=== PATIENT | female | born 1955 | race Caucasian/White ===

== ENCOUNTER → 2017-07-07 | Outpatient (CLI) | payer BC | END | disposition home or self-care (01) | LOC: CFH 13:16 | PROVIDERS: ATTEND Family Medicine | DX: N63 Unspecified lump in breast (principal) | CPT/HCPCS: 76641; G0204 ==

== ENCOUNTER → 2017-07-08 | Outpatient (CLI) | payer BC ==
[~2017-07-08] MED LIST: LIDOCAINE 1%-EPI 1:100K, 30ML ONE; SODIUM BICARBONATE 4.2%, 5ML ONE
== END | disposition home or self-care (01) ==
LOC: CFH 07:30
PROVIDERS: ATTEND Family Medicine
DX: R92.8 Other abnormal and inconclusive findings on diagnostic imaging of breast (principal)
CPT/HCPCS: 19083; 88305; G0206; J3490; 88360

== ENCOUNTER → 2017-08-06 | Outpatient (CLI) | payer BC ==
[~2017-08-06] MED LIST changes: +AMLO5TAB2 PO; -LIDOCAINE 1%-EPI 1:100K, 30ML ONE; +LORA1TAB PO; -SODIUM BICARBONATE 4.2%, 5ML ONE
== END | disposition home or self-care (01) ==
LOC: STAR 12:34
PROVIDERS: ATTEND Surgery
DX: Z01.818 Encounter for other preprocedural examination (principal); R94.31 Abnormal electrocardiogram [ECG] [EKG]; C50.211 Malignant neoplasm of upper-inner quadrant of right female breast
CPT/HCPCS: 93005

== ENCOUNTER 2017-08-13 11:38 | Day surgery (SDC) | payer BC ==
[~2017-08-13] VITALS: Ht 170.2 cm; Wt 53.0 kg
[2017-08-13] MEDS ORDERED: BUPIVACAINE/PF 0.25% ONE (11:43)
[2017-08-13 12:03] VITALS: BP 172/72
[2017-08-13] MEDS ORDERED: LACTATED RINGERS 1,000 ML IV SCH (12:03)
[2017-08-13] MEDS ORDERED: LIDOCAINE 1%, 2ML ONE (12:28)
[2017-08-13] MEDS ORDERED: PNEUMOCOCCAL 23 VACCINE IM-VACC ONE (12:30)
[2017-08-13] MEDS ORDERED: LIDOCAINE 1%, 2ML SQ PRN (13:00)
[2017-08-13] MEDS ORDERED: BUPIVACAINE/PF 0.5% ONE (13:12)
[2017-08-13] MEDS ORDERED: GENTAMICIN 80 MG/2 ML ONE (13:12)
[2017-08-13] MEDS ORDERED: EPINEPHRINE 1 MG/ML, 1ML ONE (13:13)
[2017-08-13] MEDS ORDERED: BACITRACIN 50,000 UNIT ONE (13:13)
[2017-08-13] MEDS ORDERED: FENTANYL PF 100 MCG/2ML ONE ×3 (13:36→15:36)
[2017-08-13] MEDS ORDERED: MIDAZOLAM 1 MG/ML, 2ML ONE (13:37)
[2017-08-13] MEDS ORDERED: CEFAZOLIN 1,000 MG ONE (13:43)
[2017-08-13] MEDS ORDERED: ONDANSETRON 2MG/ML, 2ML ONE (13:43)
[2017-08-13] MEDS ORDERED: DEXAMETHASONE 4 MG/ML, 5ML ONE (13:43)
[2017-08-13] MEDS ORDERED: ISOSULFAN BLUE 10 MG/ML, 5ML IV ONE (13:51)
[2017-08-13] MEDS ORDERED: LABETALOL 5MG/ML, 20ML ONE (14:05)
[2017-08-13] MEDS ORDERED: hydrALAzine 20 MG/ML, 1ML ONE (15:08)
[2017-08-13] MEDS ORDERED: HYDROmorphone 1 MG/ML, 1ML IV PRN (15:30)
[2017-08-13] MEDS ORDERED: PROMETHAZINE 25 MG/ML, 1ML IV PRN (15:30)
[2017-08-13] MEDS ORDERED: OXYcodone 5 MG/5 ML ORAL.SOL UDC PO PRN (15:30)
[2017-08-13] MEDS ORDERED: MEPERIDINE/PF 25MG/0.5ML IVPush PRN (15:30)
[2017-08-13] MEDS ORDERED: ONDANSETRON 2MG/ML, 2ML IVPush PRN (15:30)
[2017-08-13] MEDS ORDERED: LABETALOL 5MG/ML, 20ML IV PRN (15:30)
[2017-08-13] MEDS ORDERED: ACETAMINOPHEN 325 MG TABLET PO PRN (15:30)
[2017-08-13] MEDS ORDERED: FENTANYL PF 100 MCG/2ML IV PRN (15:30)
[2017-08-13] MEDS ORDERED: hydrALAzine 20 MG/ML, 1ML IV PRN (15:30)
== END 2017-08-13 18:15 | disposition home or self-care (01) ==
LOC: OUT 11:38 → EDSTATUS 14:00 → OUT 18:15
PROVIDERS: ATTEND Surgery
DX: C50.211 Malignant neoplasm of upper-inner quadrant of right female breast (principal); K73.9 Chronic hepatitis, unspecified; F32.9 Major depressive disorder, single episode, unspecified; F17.200 Nicotine dependence, unspecified, uncomplicated; J44.9 Chronic obstructive pulmonary disease, unspecified; Z88.2 Allergy status to sulfonamides
CPT/HCPCS: 19303; 38525; 38792; 88305; 88307; 88333; A9541; C1729; C1762; J0171; J0360; J0690; J1100; J1580; J2250; J2405; J3010; J3490; J7120

== ENCOUNTER 2017-09-10 06:46 | Day surgery (SDC) | payer BC ==
[~2017-09-10] VITALS: Ht 170.2 cm; Wt 51.0 kg
[2017-09-10] MEDS ORDERED: LACTATED RINGERS 1,000 ML IV SCH (07:00)
[2017-09-10] MEDS ORDERED: BUPIVACAINE/PF 0.5% ONE (07:01)
[2017-09-10] MEDS ORDERED: HEPARIN 1,000 UNITS/ML, 10ML ONE (07:03)
[2017-09-10] MEDS ORDERED: PROTAMINE SULFATE 10 MG/ML, 5ML ONE (07:03)
[2017-09-10 07:18] VITALS: BP 158/73
[2017-09-10] MEDS ORDERED: MIDAZOLAM 1 MG/ML, 2ML ONE ×2 (08:04→08:07)
[2017-09-10] MEDS ORDERED: FENTANYL PF 100 MCG/2ML ONE ×2 (08:04→08:07)
[2017-09-10] MEDS ORDERED: BUPIVACAINE/PF-EPI 0.5% 1:200K INFIL ONE (09:15)
[2017-09-10] MEDS ORDERED: OXYcodone 5 MG/5 ML ORAL.SOL UDC PO PRN (09:30)
[2017-09-10] MEDS ORDERED: HYDROmorphone 1 MG/ML, 1ML IV PRN (09:30)
[2017-09-10] MEDS ORDERED: PROMETHAZINE 25 MG/ML, 1ML IV PRN (09:30)
[2017-09-10] MEDS ORDERED: MEPERIDINE/PF 25MG/0.5ML IVPush PRN (09:30)
[2017-09-10] MEDS ORDERED: MIDAZOLAM 1 MG/ML, 2ML IV PRN (09:30)
[2017-09-10] MEDS ORDERED: KETOROLAC 30 MG/1 ML IV PRN (09:30)
[2017-09-10] MEDS ORDERED: METOPROLOL 1 MG/ML, 5ML IV PRN (09:30)
[2017-09-10] MEDS ORDERED: FENTANYL PF 100 MCG/2ML IV PRN (09:30)
[2017-09-10] MEDS ORDERED: ALBUTEROL SULFATE 2.5 MG/3 ML NPPB PRN (09:30)
[2017-09-10] MEDS ORDERED: hydrALAzine 20 MG/ML, 1ML IV PRN (09:30)
[2017-09-10] MEDS ORDERED: ACETAMINOPHEN 325 MG TABLET PO PRN (09:30)
[2017-09-10] MEDS ORDERED: GLYCOPYRROLATE 0.2MG/1ML, 5ML ONE (09:40)
[2017-09-10] MEDS ORDERED: ROCURONIUM 10 MG/ML ONE (09:40)
[2017-09-10] MEDS ORDERED: PROPOFOL 10 MG/ML, 20ML ONE (09:40)
[2017-09-10] MEDS ORDERED: NEOSTIGMINE 1 MG/ML, 10ML ONE (09:40)
[2017-09-10] MEDS ORDERED: ONDANSETRON 2MG/ML, 2ML ONE (09:40)
[2017-09-10] MEDS ORDERED: SUCCINYLCHOLINE 20 MG/ML, 10ML ONE (09:40)
[2017-09-10] MEDS ORDERED: CEFAZOLIN 1,000 MG ONE (09:40)
[2017-09-10] MEDS ORDERED: DEXAMETHASONE 4 MG/ML, 1ML ONE (09:40)
== END 2017-09-10 11:55 ==
LOC: OUT 06:46
PROVIDERS: ATTEND Surgery
DX: Z45.2 Encounter for adjustment and management of vascular access device (principal); C50.211 Malignant neoplasm of upper-inner quadrant of right female breast; F41.9 Anxiety disorder, unspecified; J44.9 Chronic obstructive pulmonary disease, unspecified; Z98.890 Other specified postprocedural states; Z90.710 Acquired absence of both cervix and uterus; Z90.11 Acquired absence of right breast and nipple
CPT/HCPCS: 36561; 71010; 77001; C1788; J0330; J0690; J1100; J1644; J2250; J2405; J2704; J3010; J3490; J7120; J2710; J2720

== ENCOUNTER 2017-10-05 16:45 | Inpatient (IN) | payer BC ==
[~2017-10-05] VITALS: Ht 170.2 cm; Wt 55.2 kg
[2017-10-05] MEDS ORDERED: SODIUM CHLORIDE FLUSH 10ML SYR IVF ONE (17:30)
[2017-10-05 17:41] LABS: HEMATOCRIT 34.6 % (34.6-47.8); HEMOGLOBIN 11.9 g/dL (11.7-16.4); WHITE BLOOD COUNT 7.2 x10^3/uL (3.4-10)
[2017-10-05 17:50] LABS: ASPARTATE AMINO TRANSFERASE 12 U/L (15-37); BLOOD UREA NITROGEN 60 mg/dL (7-18)
[2017-10-05 18:00] LABS: PATH.CAST-FLAG NOT PRESENT; SPERM-FLAG NOT PRESENT; SRC-FLAG NOT PRESENT; XTAL-FLAG NOT PRESENT; YLC-FLAG NOT PRESENT
[2017-10-05] MEDS ORDERED: SODIUM CHLORIDE 0.9% 1,000 ML IV ONE (18:20)
[2017-10-05] MEDS ORDERED: SODIUM CHLORIDE 0.9% 1,000ML IVBOLUS ONE (18:30)
[2017-10-05] MEDS ORDERED: SODIUM CHLORIDE FLUSH 10ML SYR IVF PRN (18:30)
[2017-10-05] MEDS ORDERED: CEFTRIAXONE PMX 1GM/50ML 50 ML IVPB ONE (18:30)
[2017-10-05] MEDS ORDERED: CEFTRIAXONE PMX 1GM/50ML 50 ML ONE (18:32)
[2017-10-05] MEDS: SODIUM CHLORIDE 0.9% 1,000 ML IV SCH (18:39)
[2017-10-05] MEDS ORDERED: ONDANSETRON 2MG/ML, 2ML IVPush PRN (19:00)
[2017-10-05] MEDS ORDERED: HYDROmorphone 2 MG/ML, 1ML IVPush PRN (19:00)
[2017-10-05 19:49] VITALS: BP 165/77
[2017-10-05 20:00] VITALS: BP 165/77
[2017-10-05] MEDS: FAMOTIDINE 20 MG/2 ML IVPush SCH (21:47)
[2017-10-06 02:55] VITALS: BP 165/77
[2017-10-06 03:24] VITALS: BP 164/72
[2017-10-06] MEDS: SODIUM CHLORIDE 0.9% 1,000 ML IV SCH ×3 (04:21→21:51)
[2017-10-06] MEDS: AMLODIPINE 5 MG TABLET PO SCH ×3 (05:06→08:47)
[2017-10-06 05:08] LABS: HEMATOCRIT 28.2 % (34.6-47.8); HEMOGLOBIN 9.6 g/dL (11.7-16.4); WHITE BLOOD COUNT 6.5 x10^3/uL (3.4-10)
[2017-10-06 05:19] LABS: BLOOD UREA NITROGEN 55 mg/dL (7-18)
[2017-10-06 07:34] VITALS: BP 182/68
[2017-10-06] MEDS: FAMOTIDINE 20 MG/2 ML IVPush SCH (08:46)
[2017-10-06] MEDS: hydrALAzine 20 MG/ML, 1ML IVPush PRN (08:52)
[2017-10-06 10:09] VITALS: BP 177/73
[2017-10-06] MEDS ORDERED: ACETAMINOPHEN 325 MG TABLET PO PRN (10:30)
[2017-10-06] MEDS ORDERED: MAGNESIUM SULFATE PMX 2GM/50ML 50 ML IV ONE (11:30)
[2017-10-06] MEDS: LORazepam 2 MG/ML, 1ML IVPush PRN (12:05)
[2017-10-06 13:58] VITALS: BP 166/71
[2017-10-06] MEDS ORDERED: CEFTRIAXONE PMX 1GM/50ML 50 ML IV SCH (19:00)
[2017-10-06 19:06] VITALS: BP 172/78
[2017-10-07 01:32] VITALS: BP 159/72
[2017-10-07] MEDS: SODIUM CHLORIDE 0.9% 1,000 ML IV SCH ×2 (04:08→10:24)
[2017-10-07] MEDS ORDERED: AMLODIPINE 5 MG TABLET PO SCH (05:00)
[2017-10-07 08:11] VITALS: BP 200/88
[2017-10-07] MEDS: hydrALAzine 20 MG/ML, 1ML IVPush PRN ×2 (08:39→15:41)
[2017-10-07] MEDS ORDERED: FAMOTIDINE 20 MG/2 ML IVPush SCH (09:00)
[2017-10-07 10:10] VITALS: BP 184/79
[2017-10-07] MEDS: LORazepam 2 MG/ML, 1ML IVPush PRN (10:25)
[2017-10-07 12:33] LABS: BLOOD UREA NITROGEN 54 mg/dL (7-18)
[2017-10-07] MEDS ORDERED: CIPR250T2 PO (14:47)
[2017-10-07 15:15] VITALS: BP 181/76
[2017-10-07 15:28] VITALS: BP 193/92
== END 2017-10-07 17:31 | disposition home or self-care (01) | DRG 684 ==
LOC: ED 16:59 → EDIP 18:39 → 3NW 19:17
PROVIDERS: ADMIT Family Medicine; ATTEND Internal Medicine
DX: N17.0 Acute kidney failure with tubular necrosis (principal); E87.5 Hyperkalemia; N13.30 Unspecified hydronephrosis; B96.20 Unspecified Escherichia coli [E. coli] as the cause of diseases classified elsewhere; F17.210 Nicotine dependence, cigarettes, uncomplicated; N10 Acute pyelonephritis; I10 Essential (primary) hypertension; Z85.3 Personal history of malignant neoplasm of breast; Z90.11 Acquired absence of right breast and nipple
CPT/HCPCS: 36415; 71010; 80048; 80053; 81001; 83605; 83735; 83880; 84100; 84145; 85025; 87040; 87077; 87086; 87186; 93005; 96361; 96374; J0696; J0360; J2060; J3475; J7030; S0028

== ENCOUNTER → 2017-10-23 | Outpatient (CLI) | payer BC ==
[~2017-10-23] MED LIST changes: +CIPR250T2 PO
== END | disposition home or self-care (01) ==
LOC: ROC 08:45
PROVIDERS: ATTEND Radiology Radiation Oncology
DX: C50.911 Malignant neoplasm of unspecified site of right female breast (principal); I10 Essential (primary) hypertension; N17.9 Acute kidney failure, unspecified; Z90.710 Acquired absence of both cervix and uterus; Z90.11 Acquired absence of right breast and nipple
CPT/HCPCS: 99214; G0463

== ENCOUNTER → 2017-10-23 | Outpatient (CLI) | payer BC | END | disposition home or self-care (01) | LOC: CFH 07:11 | PROVIDERS: ATTEND Internal Medicine Hematology & Oncology | DX: Z13.820 Encounter for screening for osteoporosis (principal); N26.1 Atrophy of kidney (terminal); N28.1 Cyst of kidney, acquired; N13.30 Unspecified hydronephrosis; K43.9 Ventral hernia without obstruction or gangrene; M81.0 Age-related osteoporosis without current pathological fracture | CPT/HCPCS: 76700; 77080 ==

== ENCOUNTER → 2017-11-20 | Outpatient (CLI) | payer BC | LOC: CFH 11:30 | PROVIDERS: ATTEND Family Medicine | DX: M47.814 Spondylosis without myelopathy or radiculopathy, thoracic region (principal); M41.84 Other forms of scoliosis, thoracic region; M81.0 Age-related osteoporosis without current pathological fracture | CPT/HCPCS: 72072; 72110 ==

== ENCOUNTER 2018-01-01 12:08 | Emergency (ER) | payer BC ==
[~2018-01-01] VITALS: Ht 167.6 cm; Wt 52.7 kg
[2018-01-01] MEDS ORDERED: SODIUM CHLORIDE 0.9% 1,000ML IVBOLUS ONE (13:30)
[2018-01-01] MEDS ORDERED: SODIUM CHLORIDE FLUSH 10ML SYR IVF ONE (13:30)
[2018-01-01 13:45] VITALS: BP 136/56
[2018-01-01 13:51] LABS: BASOPHILS # (AUTO) 0.04 x10^3/uL (0-0.1); BASOPHILS % (AUTO) 1 % (0-1); EOSINOPHILS # (AUTO) 0.18 x10^3/uL (0-0.4); EOSINOPHILS % (AUTO) 3 % (1-7); LYMPHOCYTES # (AUTO) 0.66 x10^3/uL (1-3.4); LYMPHOCYTES % (AUTO) 12 % (22-44); MD NO; MEAN CORPUSCULAR HEMOGLOBIN 33.3 pg (27.0-34.8); MEAN CORPUSCULAR VOLUME 97.9 fL (80-100); MEAN PLATELET VOLUME 6.3 fL (7.4-10.4); MONOCYTES % (AUTO) 6 % (2-9); NEUTROPHILS # (AUTO) 4.14 x10^3/uL (1.8-6.8); NEUTROPHILS % (AUTO) 78 % (42-75); PLATELET COUNT 159 x10^3/uL (130-400); RED BLOOD COUNT 3.39 x10^6/uL (3.82-5.3); RED CELL DISTRIBUTION WIDTH 14.7 % (9.6-15.2)
[2018-01-01 14:00] LABS: ALANINE AMINOTRANSFERASE 21 U/L (12-78); ALBUMIN 3.5 g/dL (3.4-5.0); ANION GAP 4 mmol/L (5-15); CALCIUM 6.2 mg/dL (8.5-10.1); CHLORIDE 117 mmol/L (98-107); CREATININE 3.57 mg/dL (0.55-1.02)
[2018-01-01 14:02] LABS: ALKALINE PHOSPHATASE 126 U/L (45-117); BILIRUBIN,TOTAL 0.3 mg/dL (0.2-1.0); TOTAL PROTEIN 7.2 g/dL (6.4-8.2)
[2018-01-01 14:18] LABS: RAPID INFLUENZA A Negative (Negative); RAPID INFLUENZA B Negative (Negative)
== END 2018-01-01 15:26 | disposition home or self-care (01) ==
LOC: ED 13:00
DX: J20.8 Acute bronchitis due to other specified organisms (principal); B97.89 Other viral agents as the cause of diseases classified elsewhere; J44.0 Chronic obstructive pulmonary disease with (acute) lower respiratory infection; F17.210 Nicotine dependence, cigarettes, uncomplicated; I10 Essential (primary) hypertension; Z88.1 Allergy status to other antibiotic agents; Z85.3 Personal history of malignant neoplasm of breast
CPT/HCPCS: 36415; 71045; 80053; 85025; 87040; 87400; 93005; 99285

== ENCOUNTER → 2018-01-14 | Outpatient (CLI) | payer BC | LOC: ROC 12:41 | PROVIDERS: ATTEND Radiology Radiation Oncology | DX: C50.911 Malignant neoplasm of unspecified site of right female breast (principal) | CPT/HCPCS: 99212; G0463 ==

== ENCOUNTER → 2018-04-15 | Outpatient (CLI) | payer BC | END | disposition home or self-care (01) | LOC: ROC 07:26 | PROVIDERS: ATTEND Radiology Radiation Oncology | DX: Z08 Encounter for follow-up examination after completed treatment for malignant neoplasm (principal); C50.211 Malignant neoplasm of upper-inner quadrant of right female breast; M81.0 Age-related osteoporosis without current pathological fracture; F17.200 Nicotine dependence, unspecified, uncomplicated; Z90.10 Acquired absence of unspecified breast and nipple; Z88.1 Allergy status to other antibiotic agents | CPT/HCPCS: 99213; G0463 ==

== ENCOUNTER 2018-04-23 07:18 | Day surgery (SDC) | payer BC ==
[~2018-04-23] VITALS: Ht 170.2 cm; Wt 51.2 kg
[~2018-04-23 07:18] MED LIST changes: +HEPARIN 1,000 UNITS/ML, 10ML ONE
[2018-04-23] MEDS ORDERED: SODIUM CHLORIDE 0.9% 1,000 ML IV SCH (07:40)
[2018-04-23 07:41] VITALS: BP 129/71
[2018-04-23] MEDS ORDERED: ANAS1TAB PO (08:46)
[2018-04-23] MEDS ORDERED: sodium bicarb (08:46)
[2018-04-23] MEDS ORDERED: LABE100T3 PO (08:46)
[2018-04-23] MEDS ORDERED: AMLO10TA2 PO (08:46)
[2018-04-23] MEDS ORDERED: CHOL5000 PO (08:46)
[2018-04-23] MEDS ORDERED: FENTANYL PF 100 MCG/2ML ONE ×2 (11:16→13:14)
[2018-04-23] MEDS ORDERED: PROPOFOL 10 MG/ML, 20ML ONE (12:01)
[2018-04-23] MEDS ORDERED: ONDANSETRON 2MG/ML, 2ML ONE (12:01)
[2018-04-23] MEDS ORDERED: CEFAZOLIN 1,000 MG ONE (12:01)
[2018-04-23] MEDS ORDERED: OXYcodone 5 MG/5 ML ORAL.SOL UDC PO PRN (12:30)
[2018-04-23] MEDS ORDERED: ACETAMINOPHEN 325 MG TABLET PO PRN (12:30)
[2018-04-23] MEDS ORDERED: ONDANSETRON ODT 8 MG PO PRN (12:30)
[2018-04-23] MEDS ORDERED: HYDROcodone/APAP 7.5-325MG/15ML UDC PO PRN (12:30)
[2018-04-23] MEDS ORDERED: OXYcodone 5 MG/5 ML ORAL.SOL UDC ONE (13:14)
[2018-04-23] MEDS: FENTANYL PF 100 MCG/2ML IV PRN ×2 (13:15→13:22)
[2018-04-23] MEDS ORDERED: hydrALAzine 20 MG/ML, 1ML ONE (13:28)
[2018-04-23] MEDS ORDERED: hydrALAzine 20 MG/ML, 1ML IV PRN (13:30)
== END 2018-04-23 16:45 ==
LOC: OUT 07:18
PROVIDERS: ATTEND Surgery Vascular Surgery
DX: I12.0 Hypertensive chronic kidney disease with stage 5 chronic kidney disease or end stage renal disease (principal); N18.6 End stage renal disease; J44.9 Chronic obstructive pulmonary disease, unspecified; Z88.1 Allergy status to other antibiotic agents
CPT/HCPCS: 36415; 36821; 80047; 93005; J0360; J0690; J1644; J2405; J2704; J3010; J7030

== ENCOUNTER → 2018-07-09 | Outpatient (CLI) | payer BC ==
[~2018-07-09] MED LIST changes: +AMLO10TA2 PO; +ANAS1TAB PO; +CHOL5000 PO; -HEPARIN 1,000 UNITS/ML, 10ML ONE; +LABE100T6 PO; +sodium bicarb
== END | disposition home or self-care (01) ==
LOC: CFH 15:07
PROVIDERS: ATTEND Internal Medicine Hematology & Oncology
DX: Z12.31 Encounter for screening mammogram for malignant neoplasm of breast (principal); C50.211 Malignant neoplasm of upper-inner quadrant of right female breast; M81.0 Age-related osteoporosis without current pathological fracture; Z85.3 Personal history of malignant neoplasm of breast
CPT/HCPCS: 77063; 77067

== ENCOUNTER 2018-07-20 12:21 | Inpatient (IN) | payer BC ==
[~2018-07-20] VITALS: Ht 167.6 cm; Wt 50.7 kg
[~2018-07-20 12:21] MED LIST changes: -AMLO10TA2 PO; +AMLO10TA6 PO; -AMLO5TAB2 PO; +AMLO5TAB7 PO
[2018-07-20 13:17] LABS: BASOPHILS # (AUTO) 0.03 x10^3/uL (0-0.1); BASOPHILS % (AUTO) 1 % (0-1); EOSINOPHILS # (AUTO) 0.13 x10^3/uL (0-0.4); EOSINOPHILS % (AUTO) 3 % (1-7); LYMPHOCYTES # (AUTO) 0.73 x10^3/uL (1-3.4); LYMPHOCYTES % (AUTO) 14 % (22-44); MD NO; MEAN CORPUSCULAR HEMOGLOBIN 34.4 pg (27.0-34.8); MEAN CORPUSCULAR HGB CONC 35.1 g/dL (32.4-35.8); MEAN CORPUSCULAR VOLUME 98.1 fL (80-100); MEAN PLATELET VOLUME 6.9 fL (7.4-10.4); MONOCYTES # (AUTO) 0.38 x10^3/uL (0.2-0.8); MONOCYTES % (AUTO) 7 % (2-9); NEUTROPHILS # (AUTO) 4.13 x10^3/uL (1.8-6.8); NEUTROPHILS % (AUTO) 76 % (42-75); PLATELET COUNT 171 x10^3/uL (130-400); RED BLOOD COUNT 2.84 x10^6/uL (3.82-5.3); RED CELL DISTRIBUTION WIDTH 13.6 % (9.6-15.2)
[2018-07-20 13:27] LABS: ALANINE AMINOTRANSFERASE 21 U/L (12-78); ALBUMIN 3.6 g/dL (3.4-5.0); ANION GAP 10 mmol/L (5-15); CALCIUM 8.6 mg/dL (8.5-10.1); CHLORIDE 104 mmol/L (98-107); CREATININE 3.84 mg/dL (0.55-1.02)
[2018-07-20] MEDS ORDERED: ONDANSETRON ODT 4 MG ONE (13:28)
[2018-07-20 13:30] LABS: ALKALINE PHOSPHATASE 76 U/L (45-117); BILIRUBIN,TOTAL 0.4 mg/dL (0.2-1.0)
[2018-07-20] MEDS ORDERED: ONDANSETRON ODT 4 MG PO ONE (13:30)
[2018-07-20] MEDS ORDERED: SODIUM CHLORIDE 0.9% 1,000ML IVBOLUS ONE (13:30)
[2018-07-20] MEDS ORDERED: SODIUM CHLORIDE FLUSH 10ML SYR IVF ONE (13:30)
[2018-07-20 14:31] LABS: MICROSCOPIC AUTO
[2018-07-20 14:42] LABS: CULTURE INDICATED? YES
[2018-07-20] MEDS ORDERED: CEFTRIAXONE 1,000 MG in SODIUM CHLORIDE 0.9% 50 ML IVPB ONE (15:00)
[2018-07-20] MEDS ORDERED: CEFTRIAXONE PMX 1GM/50ML 50 ML ONE (15:07)
[2018-07-20] MEDS ORDERED: CALCIUM (15:36)
[2018-07-20] MEDS ORDERED: VARE1TAB20 PO (15:36)
[2018-07-20] MEDS ORDERED: SODIUM CHLORIDE 0.9% 1,000 ML IV SCH (16:06)
[2018-07-20] MEDS ORDERED: LABETALOL 5MG/ML, 20ML IVPush PRN (16:30)
[2018-07-20] MEDS ORDERED: ACETAMINOPHEN 325 MG TABLET PO PRN (16:30)
[2018-07-20] MEDS ORDERED: ONDANSETRON 2MG/ML, 2ML IVPush PRN (16:30)
[2018-07-20] MEDS ORDERED: SODIUM BICARB (16:35)
[2018-07-20 16:49] LABS: TROPONIN I < 0.015 ng/mL (0.000-0.045)
[2018-07-20 16:54] LABS: CREATININE,URINE RANDOM 64.1 mg/dL
[2018-07-20] MEDS ORDERED: POLYETHYLENE GLYCOL 17 GM PACKET PO PRN (17:00)
[2018-07-20] MEDS ORDERED: BISACODYL 10 MG SUPP PR PRN (17:00)
[2018-07-20] MEDS: CHANTIX MC SCH (17:00)
[2018-07-20 17:22] VITALS: BP 182/75
[2018-07-20] MEDS: HEPARIN 5,000 UNITS/ML, 1ML SQ SCH (17:30)
[2018-07-20 18:53] VITALS: BP 157/77
[2018-07-20 18:58] LABS: CLOSTRIDIUM DIFFICILE ANTIGEN NEGATIVE; CLOSTRIDIUM DIFFICILE TOXIN NEGATIVE (Negative)
[2018-07-20] MEDS: VARENICLINE 1MG TABLET PO SCH (21:00)
[2018-07-20] MEDS ORDERED: DOCUSATE 100 MG CAPSULE PO PRN (21:00)
[2018-07-20 22:45] LABS: TROPONIN I < 0.015 ng/mL (0.000-0.045)
[2018-07-21] VITALS (7 sets, daily range): BP systolic 111–155; BP diastolic 65–85
[2018-07-21] MEDS: HEPARIN 5,000 UNITS/ML, 1ML SQ SCH ×3 (00:51→18:11)
[2018-07-21] MEDS: CHANTIX MC SCH (01:00)
[2018-07-21 05:57] LABS: BASOPHILS # (AUTO) 0.04 x10^3/uL (0-0.1); BASOPHILS % (AUTO) 1 % (0-1); EOSINOPHILS # (AUTO) 0.17 x10^3/uL (0-0.4); EOSINOPHILS % (AUTO) 4 % (1-7); LYMPHOCYTES % (AUTO) 24 % (22-44); MD NO; MEAN CORPUSCULAR HEMOGLOBIN 34.7 pg (27.0-34.8); MEAN CORPUSCULAR HGB CONC 34.8 g/dL (32.4-35.8); MEAN CORPUSCULAR VOLUME 99.8 fL (80-100); MEAN PLATELET VOLUME 6.8 fL (7.4-10.4); MONOCYTES # (AUTO) 0.35 x10^3/uL (0.2-0.8); MONOCYTES % (AUTO) 8 % (2-9); NEUTROPHILS # (AUTO) 2.65 x10^3/uL (1.8-6.8); NEUTROPHILS % (AUTO) 63 % (42-75); PLATELET COUNT 150 x10^3/uL (130-400); RED BLOOD COUNT 2.81 x10^6/uL (3.82-5.3); RED CELL DISTRIBUTION WIDTH 13.1 % (9.6-15.2)
[2018-07-21 06:12] LABS: CHLORIDE 109 mmol/L (98-107)
[2018-07-21 06:21] LABS: ANION GAP 9 mmol/L (5-15); CALCIUM 7.9 mg/dL (8.5-10.1); CREATININE 3.53 mg/dL (0.55-1.02)
[2018-07-21] MEDS: VARENICLINE 1MG TABLET PO SCH ×3 (09:00→21:38)
[2018-07-21] MEDS: CHOLECALCIFEROL 5,000u TAB PO SCH (09:53)
[2018-07-21] MEDS: AMLODIPINE 10 MG TAB PO SCH (09:54)
[2018-07-21] MEDS: LABETALOL 100 MG TABLET PO SCH (09:54)
[2018-07-21] MEDS: ANASTROZOLE 1 MG TABLET PO SCH (11:33)
[2018-07-21] MEDS: LORazepam 1MG TABLET PO PRN ×2 (11:38→21:37)
[2018-07-21] MEDS ORDERED: CEFTRIAXONE 1,000 MG in SODIUM CHLORIDE 0.9% 50 ML IV SCH (15:30)
[2018-07-21] MEDS: SODIUM CHLORIDE 0.9% 1,000 ML IV SCH (16:35)
[2018-07-22 01:01] VITALS: BP 168/64
[2018-07-22 01:03] VITALS: BP_SYST 157; BP_SYST 162; BP_DIAS 76; BP_DIAS 89
[2018-07-22] MEDS: HEPARIN 5,000 UNITS/ML, 1ML SQ SCH ×2 (01:09→08:40)
[2018-07-22] MEDS: SODIUM CHLORIDE 0.9% 1,000 ML IV SCH (01:09)
[2018-07-22 08:34] VITALS: BP 161/86
[2018-07-22] MEDS: LABETALOL 100 MG TABLET PO SCH (08:40)
[2018-07-22] MEDS: AMLODIPINE 10 MG TAB PO SCH (08:40)
[2018-07-22] MEDS: CHOLECALCIFEROL 5,000u TAB PO SCH (08:40)
[2018-07-22] MEDS: ANASTROZOLE 1 MG TABLET PO SCH (08:45)
[2018-07-22] MEDS ORDERED: CEFD300C37 PO (09:34)
== END 2018-07-22 10:23 | disposition home or self-care (01) | DRG 74 ==
LOC: ED 15:16 → EDIP 15:17 → ED 15:25 → 4WST 17:04 → DCLOUNGE 07-22 10:12
PROVIDERS: ADMIT Hospitalist; ATTEND Hospitalist
DX: G90.8 Other disorders of autonomic nervous system (principal); N17.9 Acute kidney failure, unspecified; E46 Unspecified protein-calorie malnutrition; N39.0 Urinary tract infection, site not specified; Z68.1 Body mass index [BMI] 19.9 or less, adult; D63.1 Anemia in chronic kidney disease; F17.200 Nicotine dependence, unspecified, uncomplicated; I13.10 Hypertensive heart and chronic kidney disease without heart failure, with stage 1 through stage 4 chronic kidney disease, or unspecified chronic kidney disease; K52.9 Noninfective gastroenteritis and colitis, unspecified; J45.909 Unspecified asthma, uncomplicated; N18.3 Chronic kidney disease, stage 3 (moderate); Z85.3 Personal history of malignant neoplasm of breast; Z83.3 Family history of diabetes mellitus; Z85.42 Personal history of malignant neoplasm of other parts of uterus; Z90.710 Acquired absence of both cervix and uterus; Z90.11 Acquired absence of right breast and nipple; Z90.49 Acquired absence of other specified parts of digestive tract
CPT/HCPCS: 36415; 80048; 80053; 81001; 82436; 82570; 83605; 83690; 84133; 84300; 84484; 85025; 87040; 87046; 87086; 87324; 89055; 96361; 96365; 99285; G0378; J0696; J1644; Q0162; J7030

== ENCOUNTER 2018-11-25 12:00 | Inpatient (IN) | payer BC ==
[~2018-11-25] VITALS: Ht 167.6 cm; Wt 51.0 kg
[~2018-11-25 12:00] MED LIST changes: +AMLO-150 PO; -AMLO5TAB7 PO; +CALCIUM; +CEFD300C37 PO; +SODIUM BICARB; +VARE1TAB20 PO
[2018-11-25] MEDS ORDERED: HYDROcodone/APAP 5/325 TABLET ONE (12:45)
[2018-11-25] MEDS ORDERED: HYDROcodone/APAP 5/325 TABLET PO ONE (13:00)
--- NOTE | 2018-11-25 13:00 | NUR ---
MED GIVEN PER ERP ORDER FOR VARIOUS PARTS OF BODY PAIN. PT STATES BLE HURTING THE WORST. L CHEST PAIN CHRONIC R/T BREAST IMPLANT. BLE WEAKNESS WELL. URINE COLLECTED/LABS DRAWN AND SENT TO LAB. CALL LIGHT WITHIN REACH.
[2018-11-25 13:16] LABS: BASOPHILS # (AUTO) 0.03 x10^3/uL (0-0.1); BASOPHILS % (AUTO) 1 % (0-1); EOSINOPHILS # (AUTO) 0.16 x10^3/uL (0-0.4); EOSINOPHILS % (AUTO) 4 % (1-7); LYMPHOCYTES # (AUTO) 0.85 x10^3/uL (1-3.4); LYMPHOCYTES % (AUTO) 18 % (22-44); MD NO; MEAN CORPUSCULAR HEMOGLOBIN 34.2 pg (27.0-34.8); MEAN CORPUSCULAR HGB CONC 34.2 g/dL (32.4-35.8); MEAN CORPUSCULAR VOLUME 99.9 fL (80-100); MEAN PLATELET VOLUME 6.8 fL (7.4-10.4); MONOCYTES # (AUTO) 0.31 x10^3/uL (0.2-0.8); MONOCYTES % (AUTO) 7 % (2-9); NEUTROPHILS % (AUTO) 71 % (42-75); PLATELET COUNT 170 x10^3/uL (130-400); RED BLOOD COUNT 2.72 x10^6/uL (3.82-5.3); RED CELL DISTRIBUTION WIDTH 14.9 % (9.6-15.2)
[2018-11-25 13:30] LABS: ALBUMIN 3.2 g/dL (3.4-5.0); ANION GAP 8 mmol/L (5-15); CALCIUM 9.2 mg/dL (8.5-10.1); CHLORIDE 104 mmol/L (98-107)
[2018-11-25 13:31] LABS: MICROSCOPIC AUTO
[2018-11-25 13:35] LABS: CULTURE INDICATED? YES
[2018-11-25 13:35] LABS: ALANINE AMINOTRANSFERASE 23 U/L (12-78); ALKALINE PHOSPHATASE 116 U/L (45-117); BILIRUBIN,TOTAL 0.5 mg/dL (0.2-1.0); CREATININE 6.66 mg/dL (0.55-1.02); TOTAL PROTEIN 6.7 g/dL (6.4-8.2)
--- NOTE | 2018-11-25 14:19 | NUR ---
ALL RESULTS BACK, PT FOR RECHECK.
[2018-11-25] MEDS ORDERED: LABETALOL 5MG/ML, 20ML IVPush PRN (15:30)
[2018-11-25] MEDS ORDERED: hydrALAzine 20 MG/ML, 1ML IVPush PRN (15:30)
[2018-11-25] MEDS ORDERED: LORazepam 1MG TABLET PO PRN (15:30)
--- NOTE | 2018-11-25 15:51 | NUR ---
MED REC COMPLETED, AWAITING ADMISSION BED. IV PLACED BY MEDIC.
[2018-11-25] MEDS ORDERED: FUROSEMIDE 40 MG/4 ML IV ONE (16:00)
[2018-11-25] MEDS ORDERED: POTASSIUM CHLORIDE 20 MEQ TAB.ER.PRT PO ONE (16:00)
--- NOTE | 2018-11-25 16:19 | NUR ---
REPORT TO KIMMIE CEJA. PT READY FOR TRANSPORT TO FLOOR.
[2018-11-25 16:57] VITALS: BP 166/76
[2018-11-25 17:04] VITALS: BP 166/76
[2018-11-25] MEDS: HEPARIN 5,000 UNITS/ML, 1ML SQ SCH (17:21)
[2018-11-25 20:09] VITALS: BP 146/70
[2018-11-25] MEDS ORDERED: LABETALOL HCL 100 MG PO SCH (21:00)
[2018-11-25] MEDS: SODIUM BICARBONATE 650 MG TABLET PO SCH (21:00)
[2018-11-25] MEDS: LABETALOL 100 MG TABLET PO SCH (21:27)
[2018-11-25] MEDS ORDERED: NICOTINE 21 MG/24 HR PATCH.TD24 ONE (22:26)
[2018-11-25] MEDS: LORazepam 1MG TABLET PO PRN (22:36)
[2018-11-25] MEDS: NICOTINE 21 MG/24 HR PATCH.TD24 TD SCH (22:37)
[2018-11-26 01:24] VITALS: BP 149/77
[2018-11-26] MEDS: HEPARIN 5,000 UNITS/ML, 1ML SQ SCH ×3 (02:14→17:44)
[2018-11-26 05:56] LABS: CHLORIDE 108 mmol/L (98-107)
[2018-11-26 06:05] LABS: ANION GAP 9 mmol/L (5-15); CALCIUM 8.8 mg/dL (8.5-10.1); CREATININE 6.59 mg/dL (0.55-1.02)
[2018-11-26 06:53] LABS: MEAN CORPUSCULAR HEMOGLOBIN 32.9 pg (27.0-34.8); MEAN CORPUSCULAR HGB CONC 32.9 g/dL (32.4-35.8); MEAN PLATELET VOLUME 7.2 fL (7.4-10.4); PLATELET COUNT 160 x10^3/uL (130-400); RED BLOOD COUNT 2.47 x10^6/uL (3.82-5.3)
[2018-11-26 07:18] LABS: BASOPHILS # (AUTO) 0.03 x10^3/uL (0-0.1); BASOPHILS % (AUTO) 1 % (0-1); EOSINOPHILS % (AUTO) 5 % (1-7); LYMPHOCYTES % (AUTO) 23 % (22-44); MD SCAN; MONOCYTES # (AUTO) 0.31 x10^3/uL (0.2-0.8); MONOCYTES % (AUTO) 7 % (2-9); NEUTROPHILS # (AUTO) 2.77 x10^3/uL (1.8-6.8); NEUTROPHILS % (AUTO) 64 % (42-75)
[2018-11-26 07:45] VITALS: BP 135/64
[2018-11-26] MEDS ORDERED: ALBUTEROL SULFATE 2.5 MG/3 ML NPPB PRN (08:30)
[2018-11-26] MEDS: SODIUM BICARBONATE 650 MG TABLET PO SCH ×2 (09:00→21:00)
[2018-11-26] MEDS ORDERED: NICOTINE 21 MG/24 HR PATCH.TD24 TD SCH (09:00)
[2018-11-26] MEDS ORDERED: PNEUMOCOCCAL 23 VACCINE IM-VACC ONE (09:30)
[2018-11-26] MEDS: CHOLECALCIFEROL 5,000u TAB PO SCH (09:39)
[2018-11-26] MEDS: LABETALOL 100 MG TABLET PO SCH ×2 (09:40→22:54)
[2018-11-26] MEDS: AMLODIPINE 10 MG TAB PO SCH (09:40)
[2018-11-26] MEDS: ANASTROZOLE 1 MG TABLET PO SCH (10:45)
[2018-11-26] MEDS ORDERED: FUROSEMIDE 40 MG/4 ML IV ONE (13:00)
[2018-11-26 13:05] VITALS: BP 130/66
[2018-11-26 20:35] VITALS: BP 169/75
[2018-11-26] MEDS: LORazepam 1MG TABLET PO PRN (22:54)
[2018-11-26] MEDS: NICOTINE 21 MG/24 HR PATCH.TD24 TD SCH (22:55)
[2018-11-26] MEDS: ACETAMINOPHEN 325 MG TABLET PO PRN (23:06)
[2018-11-27 01:52] VITALS: BP 126/76
[2018-11-27] MEDS: HEPARIN 5,000 UNITS/ML, 1ML SQ SCH ×3 (02:56→18:18)
[2018-11-27 04:10] LABS: ALANINE AMINOTRANSFERASE 19 U/L (12-78); ANION GAP 9 mmol/L (5-15); CALCIUM 8.5 mg/dL (8.5-10.1); CHLORIDE 107 mmol/L (98-107); CREATININE 6.78 mg/dL (0.55-1.02)
[2018-11-27 04:13] LABS: ALKALINE PHOSPHATASE 104 U/L (45-117); BILIRUBIN,TOTAL 0.4 mg/dL (0.2-1.0); TOTAL PROTEIN 6.1 g/dL (6.4-8.2)
[2018-11-27 07:15] VITALS: BP 122/64
[2018-11-27] MEDS: CHOLECALCIFEROL 5,000u TAB PO SCH (07:59)
[2018-11-27] MEDS: AMLODIPINE 10 MG TAB PO SCH (07:59)
[2018-11-27] MEDS: LABETALOL 100 MG TABLET PO SCH ×2 (07:59→21:20)
[2018-11-27] MEDS: ANASTROZOLE 1 MG TABLET PO SCH (07:59)
[2018-11-27] MEDS: SODIUM BICARBONATE 650 MG TABLET PO SCH ×2 (08:02→20:00)
[2018-11-27 13:35] VITALS: BP 155/71
[2018-11-27] MEDS: IRON SUCROSE COMPLEX 100MG/5ML IV SCH (14:11)
[2018-11-27] MEDS: LORazepam 1MG TABLET PO PRN (14:17)
[2018-11-27 21:00] VITALS: BP 146/74
[2018-11-27] MEDS: NICOTINE 21 MG/24 HR PATCH.TD24 TD SCH (22:28)
[2018-11-28 02:05] VITALS: BP 139/71
[2018-11-28] MEDS: HEPARIN 5,000 UNITS/ML, 1ML SQ SCH ×2 (02:39→11:00)
[2018-11-28 05:52] LABS: BASOPHILS # (AUTO) 0.03 x10^3/uL (0-0.1); BASOPHILS % (AUTO) 1 % (0-1); EOSINOPHILS # (AUTO) 0.27 x10^3/uL (0-0.4); EOSINOPHILS % (AUTO) 7 % (1-7); LYMPHOCYTES # (AUTO) 0.66 x10^3/uL (1-3.4); LYMPHOCYTES % (AUTO) 18 % (22-44); MD NO; MEAN CORPUSCULAR HEMOGLOBIN 36.1 pg (27.0-34.8); MEAN CORPUSCULAR HGB CONC 35.7 g/dL (32.4-35.8); MEAN CORPUSCULAR VOLUME 100.9 fL (80-100); MEAN PLATELET VOLUME 6.8 fL (7.4-10.4); MONOCYTES # (AUTO) 0.33 x10^3/uL (0.2-0.8); MONOCYTES % (AUTO) 9 % (2-9); NEUTROPHILS # (AUTO) 2.46 x10^3/uL (1.8-6.8); NEUTROPHILS % (AUTO) 66 % (42-75); PLATELET COUNT 168 x10^3/uL (130-400); RED BLOOD COUNT 2.54 x10^6/uL (3.82-5.3); RED CELL DISTRIBUTION WIDTH 14.9 % (9.6-15.2)
[2018-11-28 06:03] LABS: ALBUMIN 3.1 g/dL (3.4-5.0); ANION GAP 10 mmol/L (5-15); CALCIUM 8.7 mg/dL (8.5-10.1); CHLORIDE 111 mmol/L (98-107)
[2018-11-28 06:05] LABS: CREATININE 6.41 mg/dL (0.55-1.02)
[2018-11-28 07:40] VITALS: BP 132/72
[2018-11-28] MEDS: IRON SUCROSE COMPLEX 100MG/5ML IV SCH (08:17)
[2018-11-28] MEDS: CHOLECALCIFEROL 5,000u TAB PO SCH (08:17)
[2018-11-28] MEDS: LABETALOL 100 MG TABLET PO SCH (08:17)
[2018-11-28] MEDS: AMLODIPINE 10 MG TAB PO SCH (08:18)
[2018-11-28] MEDS: SODIUM BICARBONATE 650 MG TABLET PO SCH (08:19)
[2018-11-28] MEDS: ANASTROZOLE 1 MG TABLET PO SCH (08:20)
[2018-11-28] MEDS: ACETAMINOPHEN 325 MG TABLET PO PRN (08:53)
[2018-11-28] MEDS ORDERED: VARE1TAB20 PEG (10:02)
== END 2018-11-28 12:20 | disposition home or self-care (01) | DRG 682 ==
LOC: ED 13:39 → EDIP 14:34 → 4WST 16:49
PROVIDERS: ADMIT Hospitalist; ATTEND Hospitalist
DX: I13.11 Hypertensive heart and chronic kidney disease without heart failure, with stage 5 chronic kidney disease, or end stage renal disease (principal); N18.6 End stage renal disease; N17.9 Acute kidney failure, unspecified; E87.2 Acidosis; J90 Pleural effusion, not elsewhere classified; D63.1 Anemia in chronic kidney disease; E03.9 Hypothyroidism, unspecified; F12.90 Cannabis use, unspecified, uncomplicated; J45.909 Unspecified asthma, uncomplicated; K59.00 Constipation, unspecified; Z83.3 Family history of diabetes mellitus; Z85.3 Personal history of malignant neoplasm of breast; Z85.42 Personal history of malignant neoplasm of other parts of uterus; Z87.440 Personal history of urinary (tract) infections; Z87.891 Personal history of nicotine dependence; Z90.710 Acquired absence of both cervix and uterus; Z99.2 Dependence on renal dialysis; Z90.49 Acquired absence of other specified parts of digestive tract
CPT/HCPCS: 36415; 71045; 80048; 80053; 80069; 81001; 82728; 83540; 83550; 83690; 83735; 83880; 84100; 85025; 87070; 87086; 87205; 90656; 90732; 93005; 93990; G0378; J1644; J1756; J1940

== ENCOUNTER → 2020-04-05 | Outpatient (CLI) | payer MEDICARE, BC ==
[~2020-04-05] MED LIST changes: -AMLO10TA6 PO; +AMLO10TA8 PO; +VARE1TAB20 PEG
== END | disposition home or self-care (01) ==
LOC: CFH 10:37
PROVIDERS: ATTEND Internal Medicine Hematology & Oncology
DX: M81.0 Age-related osteoporosis without current pathological fracture (principal); C50.211 Malignant neoplasm of upper-inner quadrant of right female breast; Z78.0 Asymptomatic menopausal state
CPT/HCPCS: 77080

== ENCOUNTER 2020-07-17 10:14 | Outpatient (CLI) | payer BC, MEDICARE ==
[2020-07-17 13:24] LABS: CHOL/HDL RATIO 2.7; LDL/HDL RATIO 1.2 (0.5-3.0)
== END 2020-07-17 23:59 | disposition home or self-care (01) ==
LOC: CFH 10:14
PROVIDERS: ATTEND Internal Medicine Hematology & Oncology
DX: Z12.31 Encounter for screening mammogram for malignant neoplasm of breast (principal); C50.211 Malignant neoplasm of upper-inner quadrant of right female breast; M81.0 Age-related osteoporosis without current pathological fracture; E78.2 Mixed hyperlipidemia; E05.90 Thyrotoxicosis, unspecified without thyrotoxic crisis or storm
CPT/HCPCS: 36415; 77063; 77067; 80061; 83036

== ENCOUNTER → 2020-08-30 | Outpatient (CLI) | payer MEDICARE, BC | END | disposition home or self-care (01) | LOC: CFH 11:14 | PROVIDERS: ATTEND Family Medicine | DX: I65.23 Occlusion and stenosis of bilateral carotid arteries (principal); R09.89 Other specified symptoms and signs involving the circulatory and respiratory systems | CPT/HCPCS: 93880 ==

== ENCOUNTER → 2020-10-19 | Outpatient (CLI) | payer MEDICARE, MEDICAID ==
[~2020-10-19] MED LIST changes: +AMLO-211 PO; -AMLO10TA8 PO; +OMNIPAQUE 350 MG/ML, 100ML BOTTLE ONE
== END | disposition home or self-care (01) ==
LOC: CFH 08:46
PROVIDERS: ATTEND Family Medicine
DX: I65.23 Occlusion and stenosis of bilateral carotid arteries (principal); I65.02 Occlusion and stenosis of left vertebral artery; I70.8 Atherosclerosis of other arteries
CPT/HCPCS: 70498; Q9967